=== PATIENT | male | born 1950 | race Caucasian/White ===

== ENCOUNTER 2024-08-20 10:05 | Inpatient (IN) ==
[2024-08-20 11:15] LABS: ALT/SGPT 49 U/L (<40); AST/SGOT 52 U/L (<40); Albumin 4.1 gm/dL (3.2-5.2); Albumin/Globulin Ratio 1.2 (1.0-2.3); Alkaline Phosphatase 116 U/L (39-117); Bilirubin,Total 0.8 mg/dL (0.1-1.0); Blood Urea Nitrogen 41 mg/dL (8-23); Calcium 9.7 mg/dL (8.6-10.4); Carbon Dioxide 31 mmol/L (22-30); Chloride 97 mmol/L (96-108); Globulin 3.3 gm/dL (2.2-3.7); Glomerular Filtration Rate 73; Glucose 151 mg/dL (70-105); Potassium 4.6 mmol/L (3.3-5.1); Sodium 141 mmol/L (133-145)
[2024-08-20] MEDS: OSELTAMIVIR PHOSPHATE 75 MG CAPSULE PO ONE (11:47)
[2024-08-20] MEDS: IPRATROPIUM/ALBUTEROL 3 ML AMPUL.NEB NEB ONE (12:00)
[2024-08-20 12:12] LABS: Basophils # (Auto) 0.02 K/mcL (0.00-0.30); Basophils % (Auto) 0.2 % (0.0-2.0); Eosinophils # (Auto) 0 K/mcL (0.00-0.70); Eosinophils % (Auto) 0 % (0.0-7.0); Hematocrit 53.1 % (40.1-51.0); Hemoglobin 15.7 g/dL (13.7-17.5); Lymphocytes # (Auto) 0.91 K/mcL (1.50-4.80); Lymphocytes % (Auto) 9.6 % (15.5-49.0); Mean Cell Volume 106.6 fL (80.0-100.0); Mean Corpuscular HGB Conc 29.6 g/dL (31.0-36.0); Mean Platelet Volume 12.3 fL (8.8-12.5); Monocytes # (Auto) 0.92 K/mcL (0.10-0.90); Monocytes % (Auto) 9.7 % (1.0-12.0); Neutrophils % (Auto) 79.8 % (38.0-78.0); Platelet Count 203 K/mcL (140-440); RBC 4.98 M/mcL (4.63-6.08); Red Cell Distribution Width 13.7 % (11.5-14.5); WBC 9.5 K/mcL (4.5-11.0)
[2024-08-20] MEDS: ALBUTEROL SULFATE 2.5 MG/3 ML NEBULIZER NEB ONE (12:40)
[2024-08-20] MEDS: methylPREDNISolone SOD SUCC 125 MG/2 ML VIAL IV ONE (12:58)
[2024-08-20] MEDS ORDERED: hydrALAZINE 20 MG/ML VIAL IV PRN (17:49)
[2024-08-20] MEDS ORDERED: SENNOSIDES 1 TABLET PO PRN (17:49)
[2024-08-20] MEDS ORDERED: DEXTROSE 31 GM ORAL.SUSP PO PRN (17:49)
[2024-08-20] MEDS ORDERED: ONDANSETRON 4 MG/2 ML VIAL IV PRN (17:49)
[2024-08-20] MEDS ORDERED: ACETAMINOPHEN 325 MG TABLET PO PRN (17:49)
[2024-08-20] MEDS ORDERED: DEXTROSE 50% 50 ML VIAL IV PRN (17:49)
[2024-08-20] MEDS: IPRATROPIUM/ALBUTEROL 3 ML AMPUL.NEB NEB SCH (19:36)
[2024-08-20] MEDS: INSULIN LISPRO 1 UNIT/0.01 ML UNIT SQ SCH (20:08)
[2024-08-20] MEDS: PANTOPRAZOLE 40 MG VIAL IV SCH (20:09)
[2024-08-20] MEDS: LORazepam 2 MG/ML VIAL IV PRN (20:17)
[2024-08-20] MEDS: PIPERACILLIN SODIUM/TAZOBACTAM 3.375 GM in DEXTROSE 5% IN WATER 50 ML IV ONE (20:20)
[2024-08-20] MEDS: DOCUSATE SODIUM 100 MG CAPSULE PO SCH (20:45)
[2024-08-20] MEDS: methylPREDNISolone SOD SUCC 125 MG/2 ML VIAL IV SCH (21:29)
[2024-08-20] MEDS: OSELTAMIVIR PHOSPHATE 75 MG CAPSULE PO SCH (21:30)
[2024-08-20] MEDS: 0.9 % SODIUM CHLORIDE 10 ML SYRINGE IV SCH (21:30)
[2024-08-20] MEDS: HALOPERIDOL LACTATE 5 MG/ML VIAL IV PRN (22:48)
[2024-08-20] MEDS: PIPERACILLIN SODIUM/TAZOBACTAM 3.375 GM in DEXTROSE 5% IN WATER 100 ML IV SCH (23:46)
[2024-08-21 06:45] LABS: Basophils # (Auto) 0 K/mcL (0.00-0.30); Basophils % (Auto) 0 % (0.0-2.0); Eosinophils # (Auto) 0.02 K/mcL (0.00-0.70); Eosinophils % (Auto) 0.2 % (0.0-7.0); Hemoglobin 14.4 g/dL (13.7-17.5); Lymphocytes % (Auto) 7.8 % (15.5-49.0); Mean Cell Volume 108.6 fL (80.0-100.0); Mean Corpuscular HGB Conc 29.4 g/dL (31.0-36.0); Mean Platelet Volume 12.9 fL (8.8-12.5); Monocytes # (Auto) 0.25 K/mcL (0.10-0.90); Monocytes % (Auto) 2.8 % (1.0-12.0); Neutrophils % (Auto) 88.5 % (38.0-78.0); Platelet Count 161 K/mcL (140-440); RBC 4.51 M/mcL (4.63-6.08); Red Cell Distribution Width 13.7 % (11.5-14.5)
[2024-08-21] MEDS: FUROSEMIDE 20 MG/2 ML VIAL IV SCH (07:21)
[2024-08-21 07:37] LABS: Phosphorous 5.4 mg/dL (2.5-4.5)
[2024-08-21 07:48] LABS: ALT/SGPT 36 U/L (<40); AST/SGOT 42 U/L (<40); Albumin 3.6 gm/dL (3.2-5.2); Albumin/Globulin Ratio 1.3 (1.0-2.3); Alkaline Phosphatase 93 U/L (39-117); Bilirubin,Total 0.6 mg/dL (0.1-1.0); Blood Urea Nitrogen 43 mg/dL (8-23); Carbon Dioxide 31 mmol/L (22-30); Chloride 100 mmol/L (96-108); Globulin 2.8 gm/dL (2.2-3.7); Glomerular Filtration Rate 73; Glucose 206 mg/dL (70-105); Potassium 5.4 mmol/L (3.3-5.1); Sodium 145 mmol/L (133-145)
[2024-08-21 07:52] LABS: Estimated Average Glucose(eAG) 163 mg/dL; Hemoglobin A1C 7.3 % Hgb (4.0-6.0)
[2024-08-21] MEDS: ENOXAPARIN 40 MG/0.4 ML SYRINGE SQ SCH (09:38)
[2024-08-21] MEDS: ASPIRIN 81 MG TAB.CHEW PO SCH (10:29)
[2024-08-21] MEDS: LOSARTAN 25 MG TABLET PO SCH (10:29)
[2024-08-21] MEDS: DULoxetine 20 MG CAPSULE PO SCH (10:29)
[2024-08-21] MEDS: amLODIPine 5 MG TABLET PO SCH (11:56)
[2024-08-21] MEDS: ACETAMINOPHEN 650 MG/65 ML BAG IV PRN (15:18)
[2024-08-21] MEDS ORDERED: DEXTROSE 31 GM ORAL.SUSP PO PRN (17:32)
[2024-08-21] MEDS ORDERED: DEXTROSE 50% 50 ML VIAL IV PRN (17:32)
[2024-08-21] MEDS: INSULIN LISPRO 1 UNIT/0.01 ML UNIT SQ SCH (17:47)
[2024-08-22 06:33] LABS: ABG Methemoglobin 0.3 % (0.4-1.5); Total Hemoglobin 14.8 gm/Dl (13.5-16.5); VBG Base Excess 9 (-2-3); VBG HCO3 36.8 mmol/L (24.0-28.0); VBG Oxygen Saturation 93.4 % (40.0-70.0); VBG PH 7.38 U (7.32-7.42); VBG PO2 96.2 mmHg (25.0-40.0); VBG Total CO2 38.8 mmol/L (25.0-29.0)
[2024-08-22 06:40] LABS: Basophils # (Auto) 0.01 K/mcL (0.00-0.30); Basophils % (Auto) 0.1 % (0.0-2.0); Eosinophils # (Auto) 0 K/mcL (0.00-0.70); Eosinophils % (Auto) 0 % (0.0-7.0); Hematocrit 46.2 % (40.1-51.0); Hemoglobin 13.8 g/dL (13.7-17.5); Lymphocytes # (Auto) 0.35 K/mcL (1.50-4.80); Lymphocytes % (Auto) 3.5 % (15.5-49.0); Mean Cell Volume 105.7 fL (80.0-100.0); Mean Corpuscular HGB Conc 29.9 g/dL (31.0-36.0); Mean Platelet Volume 12.3 fL (8.8-12.5); Monocytes # (Auto) 0.31 K/mcL (0.10-0.90); Monocytes % (Auto) 3.1 % (1.0-12.0); Neutrophils % (Auto) 92.8 % (38.0-78.0); Platelet Count 156 K/mcL (140-440); RBC 4.37 M/mcL (4.63-6.08); Red Cell Distribution Width 13.5 % (11.5-14.5); WBC 10.1 K/mcL (4.5-11.0)
[2024-08-22 06:57] LABS: Phosphorous 4.2 mg/dL (2.5-4.5)
[2024-08-22 07:01] LABS: ALT/SGPT 29 U/L (<40); AST/SGOT 26 U/L (<40); Albumin 3.6 gm/dL (3.2-5.2); Albumin/Globulin Ratio 1.4 (1.0-2.3); Alkaline Phosphatase 75 U/L (39-117); Bilirubin,Total 0.9 mg/dL (0.1-1.0); Blood Urea Nitrogen 45 mg/dL (8-23); Calcium 8.9 mg/dL (8.6-10.4); Carbon Dioxide 36 mmol/L (22-30); Chloride 100 mmol/L (96-108); Globulin 2.5 gm/dL (2.2-3.7); Glomerular Filtration Rate 73; Glucose 217 mg/dL (70-105); Potassium 4.5 mmol/L (3.3-5.1); Sodium 143 mmol/L (133-145)
[2024-08-22] MEDS: PANTOPRAZOLE 40 MG PACKET PO SCH (10:55)
[2024-08-22] MEDS: predniSONE 20 MG TABLET PO SCH (11:54)
[2024-08-22] MEDS: NICOTINE 21 MG PATCH TOPICAL SCH (14:43)
[2024-08-22] MEDS: FUROSEMIDE 20 MG TABLET PO SCH (16:48)
[2024-08-22] MEDS: TAMSULOSIN 0.4 MG CAPSULE PO SCH (20:31)
[2024-08-23 05:41] LABS: ABG Methemoglobin 0.2 % (0.4-1.5); Total Hemoglobin 14.5 gm/Dl (13.5-16.5); VBG Base Excess 13 (-2-3); VBG HCO3 39.7 mmol/L (24.0-28.0); VBG Oxygen Saturation 94.4 % (40.0-70.0); VBG PCO2 60.7 mmHg (41.0-51.0); VBG PH 7.43 U (7.32-7.42); VBG PO2 129.4 mmHg (25.0-40.0); VBG Total CO2 41.5 mmol/L (25.0-29.0)
[2024-08-23 07:03] LABS: Basophils # (Auto) 0.01 K/mcL (0.00-0.30); Basophils % (Auto) 0.1 % (0.0-2.0); Eosinophils # (Auto) 0.02 K/mcL (0.00-0.70); Eosinophils % (Auto) 0.2 % (0.0-7.0); Hematocrit 43.5 % (40.1-51.0); Lymphocytes # (Auto) 0.53 K/mcL (1.50-4.80); Lymphocytes % (Auto) 5.8 % (15.5-49.0); Mean Cell Volume 104.6 fL (80.0-100.0); Mean Corpuscular HGB Conc 29.9 g/dL (31.0-36.0); Mean Platelet Volume 12.8 fL (8.8-12.5); Monocytes # (Auto) 0.88 K/mcL (0.10-0.90); Monocytes % (Auto) 9.7 % (1.0-12.0); Platelet Count 126 K/mcL (140-440); RBC 4.16 M/mcL (4.63-6.08); Red Cell Distribution Width 13.6 % (11.5-14.5); WBC 9.1 K/mcL (4.5-11.0)
[2024-08-23 07:46] LABS: Phosphorous 3.4 mg/dL (2.5-4.5)
[2024-08-23 07:51] LABS: ALT/SGPT 28 U/L (<40); AST/SGOT 22 U/L (<40); Albumin 3.5 gm/dL (3.2-5.2); Albumin/Globulin Ratio 1.6 (1.0-2.3); Alkaline Phosphatase 64 U/L (39-117); Blood Urea Nitrogen 48 mg/dL (8-23); Calcium 8.9 mg/dL (8.6-10.4); Carbon Dioxide 36 mmol/L (22-30); Chloride 98 mmol/L (96-108); Globulin 2.2 gm/dL (2.2-3.7); Glomerular Filtration Rate 83; Glucose 188 mg/dL (70-105); Sodium 142 mmol/L (133-145)
[2024-08-23] MEDS ORDERED: guaiFENesin/CODEINE 10 ML UDC PO PRN (10:56)
[2024-08-24 06:18] LABS: ABG Methemoglobin 0.1 % (0.4-1.5); Total Hemoglobin 14.7 gm/Dl (13.5-16.5); VBG Base Excess 11 (-2-3); VBG PCO2 58.5 mmHg (41.0-51.0); VBG PH 7.43 U (7.32-7.42); VBG PO2 94.8 mmHg (25.0-40.0); VBG Total CO2 39.8 mmol/L (25.0-29.0)
[2024-08-24 06:32] LABS: Phosphorous 3.1 mg/dL (2.5-4.5)
[2024-08-24 06:35] LABS: ALT/SGPT 30 U/L (<40); AST/SGOT 20 U/L (<40); Albumin 3.2 gm/dL (3.2-5.2); Albumin/Globulin Ratio 1.4 (1.0-2.3); Alkaline Phosphatase 58 U/L (39-117); Bilirubin,Total 1.4 mg/dL (0.1-1.0); Blood Urea Nitrogen 33 mg/dL (8-23); Calcium 8.8 mg/dL (8.6-10.4); Carbon Dioxide 39 mmol/L (22-30); Chloride 101 mmol/L (96-108); Globulin 2.3 gm/dL (2.2-3.7); Glomerular Filtration Rate 92; Glucose 128 mg/dL (70-105); Potassium 3.5 mmol/L (3.3-5.1); Sodium 147 mmol/L (133-145)
[2024-08-24 06:41] LABS: Basophils # (Auto) 0.01 K/mcL (0.00-0.30); Basophils % (Auto) 0.2 % (0.0-2.0); Eosinophils # (Auto) 0 K/mcL (0.00-0.70); Eosinophils % (Auto) 0 % (0.0-7.0); Hematocrit 45.1 % (40.1-51.0); Hemoglobin 13.3 g/dL (13.7-17.5); Lymphocytes # (Auto) 0.86 K/mcL (1.50-4.80); Lymphocytes % (Auto) 13.4 % (15.5-49.0); Mean Cell Volume 106.4 fL (80.0-100.0); Mean Corpuscular HGB Conc 29.5 g/dL (31.0-36.0); Mean Platelet Volume 12.6 fL (8.8-12.5); Monocytes # (Auto) 0.68 K/mcL (0.10-0.90); Monocytes % (Auto) 10.6 % (1.0-12.0); Neutrophils % (Auto) 75.6 % (38.0-78.0); Platelet Count 104 K/mcL (140-440); RBC 4.24 M/mcL (4.63-6.08); Red Cell Distribution Width 13.4 % (11.5-14.5); WBC 6.4 K/mcL (4.5-11.0)
[2024-08-25] MEDS: METOPROLOL TARTRATE 5 MG/5 ML VIAL IV PRN (01:45)
[2024-08-25] MEDS: METOPROLOL TARTRATE 5 MG/5 ML VIAL IV ONE ×3 (01:45→02:31)
[2024-08-25] MEDS: DILTIAZEM 125 MG in DEXTROSE 5% IN WATER 100 ML IV SCH ×2 (02:50→09:41)
[2024-08-25] MEDS: DILTIAZEM 125 MG/25 ML VIAL IV ONE (02:50)
[2024-08-25 06:34] LABS: ABG Methemoglobin 0.1 % (0.4-1.5); Total Hemoglobin 14.7 gm/Dl (13.5-16.5); VBG Base Excess 13 (-2-3); VBG HCO3 38.8 mmol/L (24.0-28.0); VBG Oxygen Saturation 89.4 % (40.0-70.0); VBG PCO2 50.9 mmHg (41.0-51.0); VBG Total CO2 40.4 mmol/L (25.0-29.0)
[2024-08-25 06:46] LABS: Basophils # (Auto) 0 K/mcL (0.00-0.30); Basophils % (Auto) 0 % (0.0-2.0); Eosinophils # (Auto) 0.02 K/mcL (0.00-0.70); Eosinophils % (Auto) 0.3 % (0.0-7.0); Hematocrit 44.3 % (40.1-51.0); Hemoglobin 13.2 g/dL (13.7-17.5); Lymphocytes # (Auto) 0.99 K/mcL (1.50-4.80); Lymphocytes % (Auto) 13.5 % (15.5-49.0); Mean Cell Volume 104.5 fL (80.0-100.0); Mean Corpuscular HGB Conc 29.8 g/dL (31.0-36.0); Mean Platelet Volume 12.9 fL (8.8-12.5); Monocytes # (Auto) 0.72 K/mcL (0.10-0.90); Monocytes % (Auto) 9.8 % (1.0-12.0); Neutrophils % (Auto) 76.3 % (38.0-78.0); Platelet Count 101 K/mcL (140-440); RBC 4.24 M/mcL (4.63-6.08); WBC 7.3 K/mcL (4.5-11.0)
[2024-08-25 06:51] LABS: Phosphorous 2.2 mg/dL (2.5-4.5)
[2024-08-25 07:04] LABS: ALT/SGPT 29 U/L (<40); AST/SGOT 18 U/L (<40); Albumin 3.1 gm/dL (3.2-5.2); Albumin/Globulin Ratio 1.5 (1.0-2.3); Alkaline Phosphatase 56 U/L (39-117); Bilirubin,Total 1.6 mg/dL (0.1-1.0); Blood Urea Nitrogen 24 mg/dL (8-23); Calcium 8.6 mg/dL (8.6-10.4); Carbon Dioxide 38 mmol/L (22-30); Chloride 103 mmol/L (96-108); Globulin 2.1 gm/dL (2.2-3.7); Glomerular Filtration Rate 92; Glucose 142 mg/dL (70-105); Potassium 3.4 mmol/L (3.3-5.1); Sodium 146 mmol/L (133-145)
[2024-08-25] MEDS: FLUTICASONE PROPIONATE SPRAY.NAS NS SCH (08:46)
[2024-08-25] MEDS: HYDROCHLOROTHIAZIDE 25 MG TABLET PO ONE (14:07)
[2024-08-25] MEDS: APIXABAN 5 MG TABLET PO SCH (20:49)
[2024-08-25] MEDS: BUDESONIDE 0.5 MG/2 ML AMPUL.NEB NEB SCH (21:08)
[2024-08-25] MEDS: IPRATROPIUM/ALBUTEROL 3 ML AMPUL.NEB NEB PRN (21:08)
[2024-08-26 06:50] LABS: ALT/SGPT 25 U/L (<40); AST/SGOT 17 U/L (<40); Albumin 3.2 gm/dL (3.2-5.2); Albumin/Globulin Ratio 1.5 (1.0-2.3); Alkaline Phosphatase 52 U/L (39-117); Bilirubin,Direct 0.3 mg/dL (<0.3); Bilirubin,Total 1.6 mg/dL (0.1-1.0); Blood Urea Nitrogen 24 mg/dL (8-23); Calcium 8.8 mg/dL (8.6-10.4); Carbon Dioxide 35 mmol/L (22-30); Chloride 99 mmol/L (96-108); Globulin 2.2 gm/dL (2.2-3.7); Glomerular Filtration Rate 98; Glucose 131 mg/dL (70-105); Lactate Dehydrogenase 166 U/L (135-225); Phosphorous 3.5 mg/dL (2.5-4.5); Potassium 3.4 mmol/L (3.3-5.1); Sodium 143 mmol/L (133-145); Triglycerides 183 mg/dL (<150); Uric Acid 3.9 mg/dL (2.5-8.0)
[2024-08-26] MEDS: DILTIAZEM 180 MG CAP.XL.24H PO SCH (09:42)
[2024-08-27 06:46] LABS: ALT/SGPT 28 U/L (<40); AST/SGOT 17 U/L (<40); Albumin 3.3 gm/dL (3.2-5.2); Albumin/Globulin Ratio 1.4 (1.0-2.3); Alkaline Phosphatase 53 U/L (39-117); Bilirubin,Direct 0.3 mg/dL (<0.3); Bilirubin,Total 1.4 mg/dL (0.1-1.0); Blood Urea Nitrogen 23 mg/dL (8-23); Carbon Dioxide 35 mmol/L (22-30); Chloride 99 mmol/L (96-108); Globulin 2.4 gm/dL (2.2-3.7); Glomerular Filtration Rate 98; Glucose 120 mg/dL (70-105); Lactate Dehydrogenase 155 U/L (135-225); Phosphorous 2.5 mg/dL (2.5-4.5); Potassium 3.7 mmol/L (3.3-5.1); Sodium 142 mmol/L (133-145); Triglycerides 222 mg/dL (<150); Uric Acid 4.1 mg/dL (2.5-8.0)
== END 2024-08-27 14:33 | disposition home or self-care (01) | DRG 189 ==
LOC: ED 10:05 → ICU 17:42
PROVIDERS: ADMIT Internal Medicine; ATTEND Internal Medicine